=== PATIENT | male | born 1970 | race Caucasian/White ===

== ENCOUNTER 2023-04-05 07:07 | Outpatient (CLI) | payer OTHER, SELFPAY ==
--- NOTE | 2023-04-05 07:15 | MR_ITS ---
[address] [address] Phone:?[phone] Fax:?[phone] Referring Physician Information: Shilo Mortensen M.D. [address] [facility] [address] Phone:?[phone] Fax:?[phone] Patient:Lester Boogie D.O.B:?1970 Sex:?Male Phone:?[phone] [facility] MRN:?[id number] Exam Date:?04/05/2023 EXAM: 3.0 PIPER MRI EXAM OF THE PROSTATE WITH AND WITHOUT IV CONTRAST WITH DYNACAD IMAGING CLINICAL INFORMATION: Elevated PSA. COMPARISON: None. TECHNICAL INFORMATION: Examination was performed on a 3.0 Piper magnet. High- resolution T1 axial, T2 axial, T2 FSE sagittal and T2 FSE coronal images were obtained through the prostate gland and seminal vesicles. Diffusion images were obtained in the axial plane. 20 mL of Dotarem were injected with dynamic enhanced images of the prostate gland in the axial plane. T1 fat saturation sagittal and coronal images were obtained postinjection. 3-D rendering with interpretation and reporting of MR imaging with postprocessing under concurrent supervision; requiring imaging postprocessing on an independent [employer] workstation. IV Contrast Discarded:?0 mL Dotarem INTERPRETATION: Prostate gland measures 44 x 38 x 38 mm, 35 mL prostate. Transitional and central zones: Scattered stromal and glandular hyperplasia with small BPH nodules. No focal suspicious (PI RADS 3 or higher score) transitional zone lesion. Peripheral zones: Scattered T2 signal of the peripheral zones without focal suspicious (PI RADS 3 or higher score) lesion identified. Pelvis: Prostate capsule, neurovascular bundles and seminal vesicles are unremarkable. No pelvic adenopathy or osseous lesion. No abnormality of the visualized bowel or bladder. CONCLUSION: 1. Normal-sized prostate gland, 35 mL without focal suspicious (PI RADS 3 or higher score) transitional or peripheral zone lesion. PI-RADS Scoring System: Score / Criteria ACR PI-RADS Peripheral Zone T2WI 1 = Uniformly hyperintense signal intensity (normal) 2 = Linear or wedge-shaped hypointensity, or diffuse mild hypointensity, usually indistinct margin 3 = Heterogenous signal intensity or non-circumscribed, rounded, moderate hypointensity. Includes others that do not qualify as 2,4,or 5 4 = Circumscribed, homogeneous moderate hypointense focus/mass confined to prostate and < 1.5 cm in greatest dimension 5 = Same as 4 but >=?1.5 cm in greatest dimension or definite extraprostatic extension/invasive behavior ACR PI-RADS Transition Zone T2WI 1 = Normal appearing TZ (rare) or a round, completely encapsulated nodule (typical nodule) 2 = A mostly encapsulated nodule OR a homogeneous circumscribed nodule without encapsulation. (atypical nodule) OR a homogenous midly hypointense area between nodules 3 = Heterogeneous signal intensity with obscured margins. Includes others that do not qualify as 2,4,or 5 4 = Lenticular or non-circumscribed, homogenous, moderately hypointense, and < 1.5 cm in greatest dimension 5 = Same as 4 but >=1.5 cm in greatest dimension or definite extraprostatic extension/invasive behavior ACR PI-RADS Assessment of DWI Peripheral Zone (PZ) or Transition Zone (TZ) 1 = No abnormality (i.e., normal) on ADC and high b-value DWI 2 = Linear/wedge shaped hypotense on ADC and/or linear wedge shaped hyperintense on high b-value DWI 3 = Focal (discrete and different from the background) hypointense on ADC and/or focal hyperintense on high b-value DWI, may be markedly hypointense on ADC or markedly hyperintense on high b-value DWI, but not both 4 = Focal markedly hypontense on ADC and markedly hyperintense on high b-value DWI; < 1.5 cm in greatest dimension 5 = Same as 4 but >=1.5 cm in greatest dimension or definite extraprostatic extension/invasive behavior ACR PI-RADS Assessment for DCE Negative (-) = No early or contemporaneous enhancement, or; diffuse multifocal enhancement NOT corresponding to a focal finding on T2W and/or DWI or focal enhancement corresponding to a lesion demonstrating features of BPH on T2WI (including features of extruded BPH in the PZ) Positive (+) = Focal, and; earlier than or contemporaneous with enhancement of adjacent normal prostatic tissues, and; corresponds to a suspicious finding on T2WI and/or DWI PI-RADS Assessment Categories: Score 1 = very low; clinically significant cancer is highly unlikely to be present Score 2 = low; clinically significant cancer is unlikely to be present Score 3 = intermediate; the presence of clinically significant cancer is equivocal Score 4 = high; clinically significant cancer is likely to be present Score 5 = very high; clinically significant cancer is highly likely to be present [facility] Electronically signed on 04/05/2023 1:50:00 PM by rGay Kitchen M.D.
== END 2023-04-05 07:08 | disposition home or self-care (01) ==
LOC: MRI 07:09
PROVIDERS: PCP Student in an Organized Health Care Education/Training Program; Visit Provider Urology
DX: R97.20 Elevated prostate specific antigen [PSA] (principal)
CPT/HCPCS: 72197; A9575

== ENCOUNTER 2024-01-04 13:00 | Outpatient (RCR) | payer OTHER, SELFPAY | END 2024-03-11 16:06 | disposition home or self-care (01) | PROVIDERS: PCP Student in an Organized Health Care Education/Training Program; Visit Provider Student in an Organized Health Care Education/Training Program | DX: M25.511 Pain in right shoulder (principal); M25.512 Pain in left shoulder; G89.29 Other chronic pain; Z51.89 Encounter for other specified aftercare | CPT/HCPCS: 97110; 97112; 97140; 97161 ==

== ENCOUNTER 2024-03-21 07:02 | Outpatient (CLI) | payer OTHER, SELFPAY ==
--- OUTSIDE RECORDS SUMMARY | 2024-03-21 07:05 | XMS_ITS | Clinical Summary ---
Author Organization [employer] [facility] Address [place], [place] [address] Care Team Providers Care Manager Floral Name Role Phone Anthony Poe DO Primary Care Provider [phone] Allergies Active Allergy Reactions Criticality Noted Date Comments Isotretinoin Rash 12/28/2006 Medications Medication Sig Dispensed Refills Start Date End Date Status evolocumab (Repatha SureClick) 140 mg/mL subcutaneous pen injectorIndications :Hyperlipidemia, unspecified hyperlipidemia type Inject 1 mL (140 mg) subcutaneous every 2 weeks. Inject into abdomen, thigh, or upper arm; rotate injection sites. DEL FEDEX 12/19 for delivery 12/20 6 mL 1 12/19/2023 Active coffee/theanine/sup eroxide dis (NEURIVA DE-STRESS ORAL) NEURIVA 1/day Active lovastatin (MEVACOR) 10 mg tabletIndications:C oronary artery disease, unspecified vessel or lesion type, unspecified whether angina present, unspecified whether napaimute or transplanted heart,Hyperlipidemi a, unspecified hyperlipidemia type Every other day. 09/21/202302/27 24 Discontinue d(*Med complete/Re gimen complete/Le shahram of care change) amoxicillin (AMOXIL) 500 mg capsuleIndications: Mitral regurgitation Take 4 Capsules (2,000 mg) by mouth one time for 1 dose. 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 Recommendation for colonoscopies every 5 years. Next colonoscopy in 2026. 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 Mitral regurgitation 09/25/2008 Overview: Severe mitral regurgitation with posterior flail leaflet S/P repair 09/25/08 Atherosclerosis of napaimute co ronary artery of napaimute heart without angina pectoris 09/25/2008 Overview: Mild to moderate LAD plaque on CTA done for pre-op evaluation of MVR repair Hyperlipidemia 09/25/2008 Encounters Date Type Department Care Team Description 03/10/2024 12:25 PM CDT Office Visit [facility] [address] [place] [address] Anthony Poe DO Physical (53 year old ); Penis/scrotal Problem (Has some pain for about 30 seconds post voiding - saw a urologist in [place] about a year ago - PSA ) 03/10/2024 Travel 02/27/2024 Telephone [facility] [address] [place] [address] Anthony Poe DO Refill Request (Amoxicillin 500 mg /) 01/04/2024 Telephone [facility] [address] [place] [address] Anthony Poe DO Questions from Last 3 Months Immunizations Name Administration Dates Next Due AMB Influenza, IIV3 (Age >=3 years)(Flu Clinic Only) 07/17/2008 AMB Influenza, IIV4 PF (=>6 mos Flulaval,Fluzone Fluarix)(Flu Clinic Only) 04/28/2019 COVID-19 vaccine (Moderna 100mcg/0.5mL) PF, MDV 07/28/2022,11/03/2020 COVID-19 vaccine ([employer] SA-Bio NTech 30mcg/0.3mL) PF, MDV 07/28/2021 Influenza Virus, Unspecified 04/28/2022,03/30/20 22 Influenza, IIV3 (Age >=3 years) 07/13/2012,05/17,07/18/2001 Influenza, IIV4 07/04/2023, 0,04/16/2017,04/21 Influenza, IIV4 (=>6mos) MDV 05/11/2021,05/30/20 18 Td (Age >=7 Years) 05/17/2005,11/07/1993 Td, Preservative Free (age > = 7 Years) 09/18/2022 Tdap 09/20/2010 Zoster (Shingrix-RZV, recombinant) 03/10/2024 05/05/2024 Family History Medical History Relation Name Comments Arthritis Father Heart Disease Father Hyperlipidemia Father Other Maternal Grandfather lung ca Hyperlipidemia Mother Other Paternal Grandfather cancer Relation Name Status Comments Father Maternal Grandfather Mother Paternal Grandfather Social History Tobacco Use Types Packs/Day Years Used Date Smoking Tobacco: Never Passive Smoke Exposure: Never Smokeless Tobacco: Never Tobacco Cessation:Counseling Given: Yes Alcohol Use Standard Drinks/Week Comments Yes 0 (1 standard drink = 0.6 oz pure alcohol) once weekly 1-2 drinks at a time PHQ-2 Answer Date Recorded PHQ-2 TOTAL SCORE 0 09/21/2023 Social Connections Answer Date Recorded Frequency of Communication with Friends and Fami ly Not on file 03/18/2024 Financial Resource Strain Answer Date R ecorded Difficulty of Paying Living Expenses 3 03/15/2023 Difficulty of Paying Living Expenses Not on file 03/15/2023 Food Insecurity Answer Date Recorded Worried About Running Out of Food in the Last Ye ar 1 03/15/2023 Transportation Needs Answer Date Record ed Lack of Transportation (Medical) 1 03/15/2023 Housing Stability Answer Date Recorded Unable to Pay for Housing in the Last Year 1 03/15/2023 Sex and Gender Information Value Date Recorded Sex Assigned at Not on file Gender Identity Not on file Sexual Orientation Not on file Obstetrics History Last Filed Vital Signs Vital Sign Reading Time Taken Comments Blood Pressure 127/78 03/10/2024 12:39 PM CDT Pulse 77 03/10/2024 12:39 PM CDT Temperature 37.2 ??C (99 ??F) 07/19/2021 11:28 AM FIELD SERVICE TECHNICIAN POULTRY Respiratory Rate 18 12/22/2020 8:53 AM CDT Oxygen Saturation 97% 03/10/2024 12:39 PM CDT Inhaled Oxygen Concentration - - Weight 87.4 kg (192 lb 9.6 oz) 03/10/2024 12:39 PM CDT Height 182.9 cm (6') 03/10/2024 12:39 PM CDT Body Mass Index 26.12 03/10/2024 12:39 PM CDT Plan of Treatment Health Maintenance Due Date Last Done Comments COVID-19 vaccine series (2022- season) 2023 08/13/2022, 07/28/2022, 07/28/2021, Additional history exists Influenza for age 50-64 03/30/2024 07/04/20, 04/28/2022, 03/30/2022, Additional history exists Zoster (shingles) series for age 50+ (2 of 2) 05/05/2024 03/10/2024 Depression screening for age 12+ 09/21/2024 09/21/2023, 09/21/2023, 08/14/2023, Additional history exists BMI (ht and wt on same day) for age 18+ 03/10/2025 03/10/2024, 09/21/2023, 09/18/2022, Additional history exists Colonoscopy through age 75 10/28/202810/28, 10/28/2021, 10/28/2021, Additional history exists Lipids for age 45-75 03/10/2029 03/10/2024, 09/28/2023, 09/18/2022, Additional history exists Tetanus booster 09/18/2032 09/18/2022, 08/31, 05/17/2005, Additional history exists Tdap Completed 09/20/2010 HIV for age 15-65 Completed 09/18/2022 Hepatitis C screening for age 18-79 Completed 09/18/2022 Pneumococcal series for age 6-64 Aged Out No longer eligible based on patient's age to complete this topic Medical Devices Implanted Type Area Co Founder And President Device Identifier Shelf Expiration Date Model / Serial / Lot Harley 3d Ring [id number] [facility] - [id number] Implanted:Qty: 1 on 09/25/2008 at [facility] N/A: Mitral Valve [employer] 06/17/2012 [id number] / [id number] / Procedures Procedure Name Priority Date/Time Associated Diagnosis Comments HEMOGLOBIN A1C SCREENING Routine 03/10/2024 1:25 PM CDT Diabetes mellitus screening BASIC METABOLIC PANEL Routine 03/10/2024 1:25 PM CDT Annual physical exam PSA TOTAL SCREEN Routine 03/10/2024 1:25 PM CDT Prostate cancer screening LIPID PANEL W REFLEX MEASURED LDL Routine 03/10/2024 1:25 PM CDT Hyperlipidemia, unspecified hyperlipidemia type LC HIV-1/O/2, 4TH GENERATION Routine 09/18/2022 11:15 AM FIELD SERVICE TECHNICIAN POULTRY Screening for HIV (human immunodeficiency virus) LC HCV ANTIBODY RFX TO QUANT PCR Routine 09/18/2022 11:15 AM FIELD SERVICE TECHNICIAN POULTRY Need for hepatitis C screening test COLONOSCOPY SCREENING Routine 10/28/2021 11:02 AM CDT Screening for colon cancer from Last 3 Months or Most Recently Relevant to Health Maintenance Results * HEMOGLOBIN A1C SCREENING (03/10/2024 1:25 PM CDT) HEMOGLOBIN A1C SCREENING 5.5 <=6.4 % 03/11/2024 7:52 AM CDT [facility] Post[facility] Blood BLOOD SPECIMEN / Unknown Venipuncture / Unknown 03/10/2024 1:25 PM CDT 03/10/2024 1:26 PM CDT Narrative [facility] - 03/11/2024 7:52 AM CDT ? (<5.7%) ?Normal ? (5.7% to 6.4%) ? Indicates prediabetes ? (>=6.5%) ? Confirms diabetes Falsely low levels may be seen with: Recent Transfusion, Recent Significant Blood Loss, Hemolytic Diseases, or Falsely elevated levels may be seen with: Untreated Anemias, Splenectomy Anthony Poe DO CHEMISTRY [facility] [address] [place] [address], * LIPID PANEL W REFLEX MEASURED LDL (03/10/2024 1:25 PM CDT) CHOLESTEROL,TOTAL 194 100 - 199 mg/dL 03/11/2024 1:11 AM CDT [facility] Comment: Cholesterol, Total Reference Ranges Desirable <200 mg/dL Borderline 200-239 mg/dL High >=240 mg/dL TRIGLYCERIDES 75 <150 mg/dL 03/11/2024 1:11 AM CDT [facility] HDL CHOLESTEROL 64 >40 mg/dL 1:11 AM CDT [facility] NON-HDL CHOLESTEROL 130 <145 mg/dl 03/11/2024 1:11 AM CDT [facility] CHOL/HDL RATIO 3.03 <4.50 03/11/2024 1:11 AM CDT [facility] LDL CHOLESTEROL 115 <=130 mg/dL 03/11/2024 1:11 AM CDT [facility] VLDL CHOLESTEROL 15 <=30 mg/dL 03/11/2024 1:11 AM CDT [facility] PROVIDER ORDERED STATUS RANDOM 03/11/2024 1:11 AM CDT [facility] Blood BLOOD SPECIMEN / Unknown Venipuncture / Unknown 03/10/2024 1:25 PM CDT 03/10/2024 1:26 PM CDT Saqib Marlow MD CHEMISTRY [facility] [address] [place] [address], [place] * BASIC METABOLIC PANEL (03/10/2024 1:25 PM CDT) SODIUM 141 136 - 145 mmol/L 03/11/2024 1:11 AM CDT [facility] POTASSIUM 4.8 3.5 - 5.1 mmol/L 03/11/2024 1:11 AM CDT [facility] CHLORIDE 106 98 - 107 mmol/L 03/11/2024 1:11 AM CDT [facility] CO2,TOTAL 25 22 - 29 mmol/L 03/11/2024 1:11 AM CDT [facility] ANION GAP 10 5 - 18 03/11/2024 1:11 AM CDT [facility] GLUCOSE 89 70 - 99 mg/dL 03/11/2024 1:11 AM CDT [facility] CALCIUM 9.4 8.6 - 10.0 mg/dL 03/11/2024 1:11 AM CDT [facility] BUN 14 6 - 20 mg/dL 03/11/2024 1:11 AM CDT [facility] CREATININE 0.96 0.70 - 1.20 mg/dL 03/11/2024 1:11 AM CDT [facility] BUN/CREAT RATIO 15 10 - 20 1:11 AM CDT [facility] eGFR >90 >90 mL/min/1.7 3m2 03/11/2024 1:11 AM CDT [facility] Comment:As of 2021, eG FR is calculated by the CKD-EPI creatinine equation without race adjustment. ??eGFR can be influenced by muscle mass, exercise, and diet. ??The reported eGFR is an estimation only and is only applicable if the renal function is stable. Blood BLOOD SPECIMEN / Unknown Venipuncture / Unknown 03/10/2024 1:25 PM CDT 03/10/2024 1:26 PM CDT Anthony Poe DO CHEMISTRY [facility] [address] [place] [address], [place] * (ABNORMAL) PSA TOTAL SCREEN - Dx Auto-associated (03/10/2024 1:25 PM CDT) PSA TOTAL (SCREEN) 5.91(H) <4.00 ng/mL 03/11/2024 1:11 AM CDT [facility] Blood BLOOD SPECIMEN / Unknown Venipuncture / Unknown 03/10/2024 1:25 PM CDT 03/10/2024 1:26 PM CDT Narrative [facility] - 03/11/2024 1:11 AM CDT The test method changed on 01/23/2023. If this test has been used for serial monitoring, rebaselining is recommended. Rebaselining consists of 2 measurements, collected 3-6 weeks apart. The Gena Elecsys total PSA assay is an electrochemiluminescence immunoassay ECLIA performed on the Gena Terrence e immunoassay analyzers. Values obtained with different assay methods may be different and cannot be used interchangeably. Anthony Poe DO LABORATORY Performing Organization Address City/[facility]/ZIP Co de Phone Number [facility] [address] [place] [address], [place] * LC HCV ANTIBODY RFX TO QUANT PCR (09/18/2022 11:15 AM FIELD SERVICE TECHNICIAN POULTRY) Pathologist [facility] HCV Ab Non Reactive Non Reactive 09/20/2022 10:06 PM FIELD SERVICE TECHNICIAN POULTRY [facility] Blood BLOOD SPECIMEN / Unknown Venipuncture / Unknown 09/18/2022 11:15 AM FIELD SERVICE TECHNICIAN POULTRY 09/18/2022 11:19 AM FIELD SERVICE TECHNICIAN POULTRY Narrative [facility] - 09/20/2022 10:06 PM FIELD SERVICE TECHNICIAN POULTRY Performed at: ??[address] - [address] ??[id number] Field Technician: Richie Ellis MD, Phone: ??[phone] Anthony Marra PAN LABORATORY [facility] ([facility]) [address] [place] [address], [place] * LC HIV-1/O/2, 4TH GENERATION (09/18/2022 11:15 AM FIELD SERVICE TECHNICIAN POULTRY) HIV Scr 4th Gen Non Reactive Non Reactive 09/20/2022 10:06 PM FIELD SERVICE TECHNICIAN POULTRY [facility] Comment: HIV Negative HIV-1/HIV-2 antibodies and HIV-1 p24 antigen were NOT detected. There is no laboratory evidence of HIV infection. Blood BLOOD SPECIMEN / Unknown Venipuncture / Unknown 09/18/2022 11:15 AM FIELD SERVICE TECHNICIAN POULTRY 09/18/2022 11:19 AM FIELD SERVICE TECHNICIAN POULTRY Narrative [facility]) - 09/20/2022 10:06 PM FIELD SERVICE TECHNICIAN POULTRY Performed at: ??01 - [facility] [place], [place] ??[id number] Field Technician: Richie Ellis MD, Phone: ??[phone] Anthony Poe DO LABORATORY [facility] ([facility]) [address] [place] [address], * COLONOSCOPY (10/28/2021 11:30 AM CDT) 10/28/2021 11:3 0 AM CDT Narrative Transcriptions Man Churchill MD - 10/28/2021 12:22 PM CDT Patient Name: Gustavo Boogie Procedure Date: 10/28/2021 Gender: Male Date of : 1970 Admit Type: Outpatient Procedure: Colonoscopy Proceduralist: Man Churchill MD , Georgina Luciano, RN(Nurse) Referring MD: Anthony Poe Indications/Pre-Op Diagnosis: Screening for colorectal malignant neoplasm, This is the patient's first colonoscopy Medications: Fentanyl 100 micrograms IV, Midazolam 4 mgIV, The level of sedation administered wasmoderate Procedure Description: The patient had risks, benefits and alternatives explained to andgave informed consent. The patient had a stable cardiopulmonary status and judged an adequate candidate for conscious sedation. The Colonoscope was passed through the anus and advanced to thececum, identified by appendiceal orifice and ileocecal valve. Thecolonoscopy was performed without difficulty. The patient tolerated the procedure well. The quality of the bowel preparation was good. The ileocecal valve, appendiceal orifice, and rectum were photographed. Complications: No immediate complications. Estimated Blood Loss & Specimen: Estimated blood loss: none. Specimen collected - Yes and sent to Laboratory Findings: The perianal and digital rectal examinations were normal. A 4 mm polyp was found in the cecum. The polyp was sessile. The polyp was removed with a cold snare. Resection and retrieval werecomplete. A 3 mm polyp was found in the transverse colon. The polyp wassessile. The polyp was removed with a cold biopsy forceps. Resection and retrieval were complete. The exam was otherwise without abnormality on direct and retroflexion views. Impressions/Post-Op Diagnosis: - One 4 mm polyp in the cecum, removed with a cold snare. Resectedand retrieved. - One 3 mm polyp in the transverse colon, removed with a cold biopsy forceps. Resected and retrieved. - The examination was otherwise normal on direct and retroflexionviews. Recommendation: - Patient has a contact number available for emergencies. The signsand symptoms of potential delayed complications were discussed with the patient. Return to normal activities tomorrow. Written discharge instructions were provided to the patient. - Resume previous diet. - Continue present medications. - Await pathology results. - Repeat colonoscopy is recommended. The colonoscopy date will be determined after pathology results from today's exam become available for review. Moderate Sedation: Moderate (conscious) sedation was administered by the endoscopy nurse and supervised by the endoscopist. The following parameters were monitored: oxygen saturation, heart rate, respiratory rate, blood pressure, adequacy of pulmonary ventilation and reponse to care. Please refer to the patient's medical record flowsheets and nursing notes for moderate sedation details. Total physician intraservice time was 20 minutes. Man Churchill MD 10/28/2021 12:22:38 PM This report has been signed electronically. Note Initiated On: 10/28/2021 11:30 AM Procedure Code(s): --- Professional --- 83330, Colonoscopy, flexible; with removalof tumor(s), polyp(s), or other lesion(s) bysnare technique 86167, 59, Colonoscopy, flexible; withbiopsy, single or multiple Diagnosis Code(s): --- Professional --- Z12.11, Encounter for screening formalignant neoplasm of colon K63.5, Polyp of colon CPT copyright 2020 [employer]. All rights reserved. The codes documented in this report are preliminary and upon aircraft stress analyst reviewmay be revised to meet current compliance requirements. Scope In: 11:56:45 AM Scope Withdrawal Time 0 hours 13 minutes 24 seconds Scope Out: 12:15:39 PM Man Churchill MD PROCEDURE ORD from Last 3 Months or Most Recently Relevant to Health Maintenance Advance Directives * Full Code (Latest Code Status on File) Date Activated Date Inactivated Comments 09/25/2008 5:33 AM 09/29/2008 6:10 PM Care Teams Manager Floral Relationship Specialty Start Date End Date Anthony Poe DO [address] [place] [address] PCP - General Family Practice 12/22/20
--- OUTSIDE RECORDS SUMMARY | 2024-03-21 07:06 | XMS_ITS | Data Portability ---
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 Not available 03/22/2023 10:25:25 Plan of Treatment Reminders Order Date Submit Date Provider Last Modified By Organization Details Last Modified Time Details Appointments None recorded. Lab urinalysis, dipstick [address] [facility], [address], [address], [place], [address], 3 10:12:30 urinalysis, microscopic [address] [facility], [address], [address], [place], [address], 4 05:01:52 Referral None recorded. Procedures None recorded. Surgeries None recorded. Imaging None recorded. Medication Orders None recorded. Patient TargetsNo targets recorded. Patient Instructions Encounter Date Encounter Id Patient Instructions Last Modified By Organization Details Last Modified Time 03/22/2023 [id number] Elevated prostat e specific antigen: We discussed the various etiologies of an elevated prostate specific antigen including benign causes such as infection or instrumentation as well as malignancy. He has no family history, but with his relatively normal exam, normal urine analysis I think the likelihood this can be simply explained away by bacterial prostatitis is quite low. I recommend therefore we do a more thorough evaluation and start with an MRI of the prostate. Obviously if this reveals a worrisome lesion that appears to be prostate cancer, we would do a biopsy. Otherwise this may also shed light on some of his pelvic floor symptoms as well. Pelvic floor/Voiding Symptoms: My assessment of this is that is likely not bacterial in nature (either urinary tract infection, prostatitis, etc.). It is likely pelvic floor dysfunction, though chronic non-bacterial prostatitis is a consideration. That being said, treatment of both of these would be the same, which would be pelvic floor physical therapy. I will call him once I have the results of his MRI. If it appears infectious, we can do extended course of antibiotics. If not, he will be referred for pelvic floor physical therapy. Not available 03/22/2023 10:28:22 Reason for Referral Pelvic Floor Therapy Referra l for Pelvic floor dysfunction Please contact patient to schedule Referring Physician: Shilo Mortensen, Urology, Encounter Date: 04/05/2023 Results Created Date Observation Date Name Description Value Unit Range Abnormal Flag LastModifiedBy Organization Detail LastModifiedTime 03/22/2003/22/2023 UA WITHO UT MICRO - CS URISC AN blood - uriscan NEGATI VE negati ve Not Available [facility] [address], [place], [address], 03/22/2023 10:12:30 03/22/20 23 03/22/2023 UA WITHO UT MICRO - CS URISC AN bilirubin - uriscan NEGATI VE mg/dL negati ve Not Available [facility] [address], [place], [address], 03/22/2023 10:12:30 03/22/20 23 03/22/2023 UA WITHO UT MICRO - CS URISC AN urobilinogen - uriscan NORMAL mg/dL normal Not Available [facility] [address], [place], [address], 03/22/2023 10:12:30 03/22/20 23 03/22/2023 UA WITHO UT MICRO - CS URISC AN ketones - uriscan NEGATI VE mg/dL negati ve Not Available [facility] [address] [facility], [place], [address], 03/22/2023 10:12:30 03/22/20 23 03/22/2023 UA WITHO UT MICRO - CS URISC AN protein - uriscan NEGATI VE mg/dL negati ve Not Available [facility] [address] [facility], [place], [address], 03/22/2023 10:12:30 03/22/20 23 03/22/2023 UA WITHO UT MICRO - CS URISC AN nitrites - uriscan NEGATI VE negati ve Not Available [facility] [address] [place] [address] [address], [place], [address], 03/22/2023 10:12:30 03/22/20 23 03/22/2023 UA WITHO UT MICRO - CS URISC AN glucose - uriscan NEGATI VE mg/dL negati ve Not Available [facility] [address] [facility] [address], [place], [address], 03/22/2023 10:12:30 03/22/20 23 03/22/2023 UA WITHO UT MICRO - CS URISC AN pH - uriscan 5.00 5.00-9 .00 Not Available [facility] [address] [facility] [address] [facility] [address], [place], [address], 03/22/2023 10:12:30 03/22/20 23 03/22/2023 UA WITHO UT MICRO - CS URISC AN sp. gravity - uriscan 1.02 1.01-1 .03 Not Available [facility] [address] [place] [address], [place], [address], 03/22/2023 10:12:30 03/22/20 23 03/22/2023 UA WITHO UT MICRO - CS URISC AN leukocytes - uriscan NEGATI VE negati ve Not Available [facility] [address], [place], [address], 03/22/2023 10:12:30 03/22/20 23 03/22/2023 UA WITHO UT MICRO - CS URISC AN color - uriscan YELLOW lt. yellow ;yello w Not Available [facility] [address], [place], [address], 03/22/2023 10:12:30 03/22/20 23 03/22/2023 UA WITHO UT MICRO - CS URISC AN clarity - uriscan CLEAR clear Not Available [facility] [address], [place], [address], 03/22/2023 10:12:30 03/22/20 23 03/22/2023 UA WITHO UT MICRO - CS URISC AN total urine volume (mL) 70 /mL Not Available [facility] [address], [place], [address], 03/22/2023 10:12:30 04/05/20 23 04/05/2023 MRI, prost ate, w/wo contr ast No observ ation record ed. AUGUSTINE Bean MD [address] [place] [address], [address], 04/09/2023 10:39:11 04/05/20 23 04/05/2023 MRI, prost ate, w/wo contr ast No observ ation record ed. Not Available 04/05/2023 17:37:23 Result Notes None recorded. Procedures Surgical History Date Name Laterality Status Provider Name and Address Organization Details Recorded Time 11/09/19 22 Diagnostic colonoscopy completed Not Available Health Note 03/02/2023 11:36:12 Insert epicard eltrd open completed Not Available Health Note 03/02/2023 11:36:12 Removal of sperm duct(s) completed Not Available Health Note 03/02/2023 11:36:12 Imaging Results Imaging Date Name Status LastModified by Organiz ation Details LastModified Time 04/05/2023 MRI, prostate, w/wo contrast completed AUGUSTINE Bean MD [address] [place] [address], [address], 04/09/2023 10:39:11 04/05/2023 MRI, prostate, w/wo contrast completed Information not available 04/05/2023 17:37:23 Procedure Notes None recorded. Medical Equipment None Reported. Allergies No known drug allergies Medications Name Sig Start Date Stop Date Status Note LastModified by Organization Details LastModified Time amoxicill in 500 mg capsule 03/06 completed HN: Patient reports no longer taking Not Available Not Available Not Available doxycycli ne hyclate 100 mg capsule 100mg 2/day 03/22 completed Not Available Not Available Not Available meloxicam 15 mg tablet 03/06 completed HN: Patient reports no longer taking Not Available Not Available Not Available ciproflox acin 500 mg tablet 03/06 completed HN: Patient reports no longer taking Not Available Not Available Not Available sulfameth oxazole 800 mg-trimet hoprim 160 mg tablet 03/06 completed HN: Patient reports no longer taking Not Available Not Available Not Available lovastati n 10 mg tablet 10mg 1/day active Not Available Not Available No t Available simvastat in 40 mg tablet 03/06 completed HN: Patient reports no longer taking Not Available Not Available Not Available ondansetr on 4 mg disintegr ating tablet 03/06 completed HN: Patient reports no longer taking Not Available Not Available Not Available rosuvasta tin 10 mg tablet TAKE 1 TABLET BY MOUTH EVERYDAY AT BEDTIME 03/22 completed HN: Patient reports no longer taking Not Available Not Available Not Available Neuriva De-Stress NEURIVA 1/day active Not Available Not Available No t Available Vitals Date Recorded Body height Body weight Body mass index (BMI) Provider Name and Address Organization Details Last Updated DateTime 03/22/2023 182.88 cm 36144.25851 77747 g 26.4 kg/m2 Not Available Health Note 03/22/2023 09:50:15 Social History Question Answer Notes LastModified by Organizat ion Details LastModified Time Tobacco Smoking Status Never Smoker Not Available Health Note 03/19/2023 16:20:16 What Is Your Level Of Alcohol Consumption? Occasional [email or web address] Information not available 03/19/2023 How Many Times Per Week Do You Consume Alcohol? 1-2 Times Per Week Information not available 03/22/2023 What Is Your Level Of Caffeine Consumption? Moderate [email or web address] Information not available 03/19/2023 How Much Tobacco Do You Chew? None [email or web address] Information not available 03/19/2023 Do You Or Have You Ever Used E-cigarettes Or Vape? Never Used Electronic Cigarettes [email or web address] Information not available 03/19/2023 What Was The Date Of Your Most Recent Tobacco Screening? 03/22/2023 [email or web address] Information not available 03/19/2023 Have You Ever Been Counseled For Unhealthy Alcohol Use? Yes Information not available 03/22/2023 What Is Your Relationship Status? [email or web address] Information not available 03/19/2023 Are You Sexually Active? Yes [email or web address] Information not available 03/02/2023 Do You Or Have You Ever Used Smokeless Tobacco? Never Used Smokeless Tobacco [email or web address] Information not available 03/19/2023 Do You Use Any Illicit Or Recreational Drugs? No [email or web address] Information not available 03/19/2023 Has Tobacco Cessation Counseling Been Provided? No Information not available 03/22/2023 Do You Or Have You Ever Used Any Other Forms Of Tobacco Or Nicotine? No Information not available 03/22/2023 How Many Days In The Past Year Have You Consumed 5 Or More Drinks? 5 [email or web address] Information no t available 03/19/2023 Sex: Unknown Functional Status None recorded. Mental Status None recorded. Family History Relationship Description Onset Age of this Age Resolved Age Notes Father No current problems or disability Mother No current problems or disability Medical History Condition Response High Blood Pressure N Kidney Stones N Lung Disease N Depression N GERD/Acid Reflux N Sexually Transmitted Infection N Diabetes N Bleeding Disorder N Cancer N High Cholesterol Y Heart Disease N Immunizations Vaccine Type Date Status Provider Name and Address Organization Details Recorded Time influenza, unspecified formulation 04/28/2022 completed Jay Meath null, [facility] 03/26/2023 12:37:10 SARS-COV-2 (COVID-19) vaccine, UNSPECIFIED 07/28/2022 completed Jay Meath null, [facility] 03/26/2023 12:37:10 SARS-COV-2 (COVID-19) vaccine, UNSPECIFIED 07/28/2022 completed Jay Meath null, [facility] 03/26/2023 12:37:10 influenza, unspecified formulation 03/30/2022 completed Jay Meath null, [facility] 03/26/2023 12:37:10 Influenza, split virus, quadrivalent, preservative 05/11/2021 completed Jay Meath null, [facility] 03/26/2023 12:37:10 Influenza, split virus, quadrivalent, preservative 05/30/2018 completed Jay Meath null, [facility] 03/26/2023 12:37:10 COVID-19, mRNA, LNP-S, PF, 100 mcg/0.5mL dose or 50 mcg/0.25mL dose 11/03/2020 completed Jay Meath null, [facility] 03/26/2023 12:37:10 COVID-19, mRNA, LNP-S, PF, 100 mcg/0.5mL dose or 50 mcg/0.25mL dose 12/02/2020 completed Jay Meath null, [facility] 03/26/2023 12:37:10 COVID-19, mRNA, LNP-S, PF, 30 mcg/0.3 mL dose 07/28/2021 completed Jay Meath null, [facility] 03/26/2023 12:37:10 COVID-19, mRNA, LNP-S, bivalent, PF, 50 mcg/0.5 mL or 25mcg/0.25 mL dose 08/13/2022 completed Jay Meath null, [facility] 03/26/2023 12:37:10 Tdap 09/20/2010 completed Jay Meath null, [facility] 03/26/2023 12:37:10 Influenza, split virus, trivalent, preservative 08/07/2012 completed Jay Meath null, [facility] 03/26/2023 12:37:10 Influenza, split virus, trivalent, preservative 05/17/2005 completed Jay Meath null, [facility] 03/26/2023 12:37:10 Influenza, split virus, trivalent, preservative 07/13/2012 completed Jay Meath null, [facility] 03/26/2023 12:37:10 Influenza, split virus, trivalent, preservative 07/17/2008 completed Jay Meath null, [facility] 03/26/2023 12:37:10 Influenza, split virus, trivalent, PF 05/13/2015 completed Jay Meath null, [facility] 03/26/2023 12:37:10 Td (adult), 5 Lf tetanus toxoid, preservative free, adsorbed 09/18/2022 completed Jay Meath null, [facility] 03/26/2023 12:37:10 Td (adult), 5 Lf tetanus toxoid, preservative free, adsorbed 05/17/2005 completed Jay Meath null, [facility] 03/26/2023 12:37:10 Influenza, split virus, quadrivalent, PF 04/16/2017 completed Jay Meath null, [facility] 03/26/2023 12:37:10 Influenza, split virus, quadrivalent, PF 04/17/2020 completed Jay Meath null, [facility] 03/26/2023 12:37:10 Influenza, split virus, quadrivalent, PF 04/21/2016 completed Jay Meath null, [facility] 03/26/2023 12:37:10 Influenza, split virus, quadrivalent, PF 04/28/2019 completed Jay Meath null, [facility] 03/26/2023 12:37:10 Past Encounters Encounter ID Performer Location Encounter Start Date Encounter Closed Date Diagnosis/Indication Diagnosis SNOMED-CT Code [id number] Shilo Mortensen MD [address] [address] 03/22/2023 09:49:11 03/22/2023 10:43:26 Prostate specific antigen above reference range [id number] Pelvic ernie or dysfunction [id number] Health Concerns Section Related Observation LastModified by Organization Detai ls LastModified Time None Recorded Concern Status LastModified by Organization Details LastModified Time None Recorded Advance Directives Directive None Recorded Payers Encounter Date Sequence Insurance Name Policy Number Policy Burgess Covered Member ID Burgess Member ID Guarantor Name 03/22/2023 1 [facility] [id number] Gustavo Boogie [id number] Gustavo Boogie Notes Date Note Type Note Provider Name and Address Organization Details Recorded Time 03/22/2023 text/html HPI Notes: This is a 52 year old male who is referred by Dr. Poe for the evaluation and management of an elevated prostate specific antigen and pelvic floor dysfunction. He was noted to have an elevated prostate specific antigen of 5.0 ng/mL (09/18/2022) He has no prior history of prostate specific antigen elevations. There is no family history of prostate cancer. He does complain of pelvic floor symptoms and pain that radiates out towards the tip of the penis. These symptoms started about 1 month ago. Urination actually improves his symptoms. His symptoms don't come until later. He also has discomfort with ejaculation. He also does have posture related pain in the pelvic area. He denies gross hematuria. Shilo Mortensen MD [address] [place] [address],[address], [place], [address], [facility] 03/22/2023 10:28:41
--- NOTE | 2024-03-21 07:15 | MR_ITS ---
[facility] [address] [address] Phone:?[phone] Fax:?[phone] Referring Physician Information: Anthony Poe D.O. [address] [facility] [address] Phone:?[phone] Fax:?[phone] Patient:Lester Boogie D.O.B:?1970 Sex:?Male Phone:?[phone] [facility] MRN:?[id number] Exam Date:?03/21/2024 EXAM: MR PELVIS WITHOUT AND WITH CONTRAST CLINICAL INFORMATION: Elevated PSA. COMPARISON: Prostate MRI from 04/05/2023. TECHNICAL INFORMATION: Examination was performed on a 1.5T magnet. High- resolution T1 axial, T2 axial, T2 FSE sagittal and T2 FSE coronal images were obtained through the prostate gland and seminal vesicles. Diffusion images were obtained in the axial plane. 20 mL of Dotarem were injected with dynamic enhanced images of the prostate gland in the axial plane. T1 fat saturation sagittal and coronal images were obtained postinjection. Images were analyzed with 3-D postprocessing online under concurrent physician supervision using a separate DirectRM workstation. INTERPRETATION: The prostate gland measures 4.6 x 4.1 x 4.0 cm (TV x AP x SI) for an estimated volume of 39 cc. Transitional and central zones: There is mild glandular and stromal hyperplasia with well encapsulated BPH nodules (PI-RADS 2). No focal CZ/TZ lesions concerning for clinically significant adenocarcinoma. Peripheral zones: No focal PZ lesions concerning for clinically significant adenocarcinoma (PI-RADS 1). Pelvis: No jossy transcapsular disease. Neurovascular bundles and seminal vesicles appear intact. No pelvic lymphadenopathy or evident bone marrow disease. CONCLUSION: Stable exam. Mild prostatomegaly with stigmata of BPH. No suspicious (PI-RADS 3, 4, or 5) lesions identified. No jossy transcapsular, karli, or skeletal disease in the pelvis. PI-RADS Assessment Categories: Score 1 = very low; clinically significant disease highly unlikely Score 2 = low; clinically significant disease is unlikely Score 3 = intermediate; clinically significant disease is equivocal Score 4 = high; clinically significant disease is likely Score 5 = very high; clinically significant disease is highly likely Electronically signed on 03/24/2024 11:55:00 AM by Fadi Huizar M.D.
== END 2024-03-21 07:03 | disposition home or self-care (01) ==
PROVIDERS: PCP Student in an Organized Health Care Education/Training Program; Visit Provider Student in an Organized Health Care Education/Training Program
DX: R97.20 Elevated prostate specific antigen [PSA] (principal); N40.0 Benign prostatic hyperplasia without lower urinary tract symptoms; M62.89 Other specified disorders of muscle
CPT/HCPCS: 72197; A9575